=== PATIENT | male | born 1970 | race Caucasian/White ===

== ENCOUNTER 2024-09-26 06:44 | Day surgery (SDC) | payer OTHER, SELFPAY ==
[2024-09-15 08:43] VITALS: BMI 27.4
[2024-09-26] VITALS (10 sets, daily range): BP systolic 111–156; BP diastolic 79–98; BMI 27.4
[2024-09-26] MEDS: TYLENOL 1000 MG PO (10:37)
--- NOTE | 2024-09-26 11:16 | W.SUR.PREOP ---
Pre-Operative Surgical Note
-
I have examined this patient prior to the performance of the scheduled procedure.
The patient's condition is unchanged from the time of the current History and
Physical and the patient is able to undergo the scheduled procedure.
--- NOTE | 2024-09-26 11:16 | HP.FOC2 ---
Focused History & Physical
Chief Complaint
HPI:
Chief Complaint: This a 53-year-old male with a symptomatic right inguinal hernia and large umbilical hernia as well as a possible left inguinal hernia
HPI / Indication for Planned Procedure:
Will plan for a robotic bilateral inguinal hernia repair with mesh, possible open umbilical hernia repair with mesh.
Relevant Past Medical History: Negative
Relevant Social History: Negative
Relevant Family History: Negative
Relevant Past Surgical History: Negative
Review of Systems
Review of Pertinent Systems: All Systems Negative
Medication
See Medication form for detailed medications: Yes
Medication List (including Herbals & OTC):
fexofenadine-pseudoephedrine ER 180 mg-240 mg tablet,ext.release 24 hr (Lillian-D 24 Hour) 1 tab.sr PO PRN PRN allergy symptoms 12/25/09
fluticasone propionate 50 mcg/actuation nasal spray,suspension 1 spray intranasal DAILY 12/25/09
ibuprofen 400 mg tablet 400 mg PO Q6H PRN pain 09/16/24
multivit,calcium,min-folic acid 240 mcg-D3 25 mcg-lycop 300 mcg tablet (One A Day Men Complete) 1 tab PO DAILY 09/16/24
omeprazole 20 mg tablet,delayed release 20 mg PO DAILY 09/16/24
acetaminophen 500 mg tablet 1,000 mg PO Q6H PRN pain 09/26/24
Medications Reviewed: Yes
Allergies and Reactions
Patient has Allergies: Yes
Noted Allergies and Reactions:
Allergy/AdvReac Type Severity Reaction Status Date / Time
No Known Allergies Allergy Unverified 09/26/24 10:19
Pertinent Physical Exam
All Other Systems: Negative
Head/Neck: Normal
Diagnosis / Assessment
This is a 53-year-old male with a symptomatic right inguinal hernia, umbilical hernia and possible left inguinal hernia
Plan / Procedure
Will plan for a robotic right inguinal hernia repair with mesh, possible left as well as an open umbilical hernia repair with mesh.
Anesthesia/Sedation to be done by Anesthesia Provider: Yes
--- NOTE | 2024-09-26 16:35 | W.IMMPOSTOP ---
Surgical Immed Post Op Note
-
Primary Surgeon: Allan Zuñiga MD
Assisting Surgeon: Trav Deleon MD
Cellophane Worker: TEODORO Lerner
Pre-op Diagnosis: Bilateral inguinal hernias, umbilical hernia
Post-op Diagnosis: Bilateral inguinal hernias, dense adhesions in the right lower quadrant, umbilical hernia.
Procedure Performed:
1. Robotic lysis of adhesions
2. Robotic bilateral inguinal hernia repair with mesh.
3. Open umbilical hernia repair with mesh
Anesthesia Type: General
Specimen / Cultures: None
Estimated Blood Loss: 11 cc
Complications: None
Operative Findings: Dense adhesions of the colon over the right inguinal space carefully taken down with sharp and electrocautery dissection. There was also dense adhesions through the abdominal wall secondary to his prior appendectomy which
significantly added to the time of the case. The patient had bilateral direct inguinal defects. No indirect defects noted. The patient had a small femoral hernia on the right, no femoral defect noted on the left. There were no cord lipomas
bilaterally. After achieving critical view of the MPO bilaterally space was reinforced with 2 large part 3D max uncoated polypropylene meshes that were fixated at coopers ligament and superior laterally. Both indirect inguinal defects were
inverted and secured at the Liu's ligament using a 2-0 V-Loc suture. The patient also had a 2 cm umbilical defect that was reinforced with a 5 x 5 cm piece of Bard soft mesh in the preperitoneal space and closed with a 0 PDS suture.
Intra-abdominal visualization confirmed no exposed mesh.
== END 2024-09-26 18:02 | disposition home or self-care (01) ==
LOC: SDS 06:44
PROVIDERS: ATTENDING PHYSICIAN Surgery; FAMILY PHYSICIAN Family Medicine
DX: K42.9 Umbilical hernia without obstruction or gangrene (principal); K40.20 Bilateral inguinal hernia, without obstruction or gangrene, not specified as recurrent; K66.0 Peritoneal adhesions (postprocedural) (postinfection)
CPT/HCPCS: 49650; 49591; 36415; 93005; C1781

== ENCOUNTER → 2024-12-16 12:44 | Outpatient (REF) | payer OTHER, BC, SELFPAY | LOC: RAD 12:44 | PROVIDERS: ATTENDING PHYSICIAN Surgery | DX: R10.31 Right lower quadrant pain (principal) | CPT/HCPCS: 72192 ==